=== PATIENT | female | born 1955 | race Caucasian/White ===

== ENCOUNTER 2017-06-30 02:22 | Inpatient (IN) | payer OTHER ==
[~2017-06-30] VITALS: Ht 162.6 cm; Wt 96.6 kg
[~2017-06-30 02:22] MED LIST: AMLODIPINE-BEN1 EAC2 PO; VITAMIN D2000 UNIT PO
--- NOTE | 2017-06-30 09:39 | RADIOLOGY REPORT ---
EXAMINATION: XR LUMBAR SPINE CLINICAL INFORMATION: L3-L4, L4-L5 TLIF COMPARISON: Lumbar spine radiograph radiograph 12/10/2016 TECHNIQUE: Lateral views of the lumbar spine were obtained at 8:26 AM and 9:08 AM FINDINGS: Lateral views demonstrate normal vertebral body height and alignment. Multilevel facet arthropathy noted in the lower lumbar spine. The lumbar radiograph from 8:26 AM demonstrates a needle in the subcutaneous tissues of the lower back with the tip at the level of the L3 spinous process. Subsequent radiograph from 9:08 AM demonstrates surgical hardware in the subcutaneous tissues of the lower lumbar spine extending from the levels of L3-L5. Linear radiopaque material is noted. There is also evidence of probable posterior decompression. IMPRESSION: Intraoperative lateral lumbar radiographs as described.
--- NOTE | 2017-06-30 12:52 | Operative Report ---
Operative/Inv Procedure Report Surgery Date: 06/30/17 Name of Procedure: L 3/4 4/;5 tlif, L3/4/5 pars osteotomies, use of 4web intervertebral biomechanical device, use of synthese pedicle screws, L3/4/5 posterior fusion, R L3/4/5 transfacet decompression, L3/4/5 laminectomy, use of auto graft, use of allograft, stealth navigation, bone mnarrow aspirate from R ilica crest Pre-Operative Diagnosis: l3/4/5 spondyliolisthesis Post-Operative Diagnosis: same Estimated Blood Loss: 1000mL Surgeon/Filter Plant Operator: Shena Fofana MD Anesthesia: general endotracheal tube Operative/Procedure Note Note: After successful administration of general endotracheal anesthesia all lines tubes and monitors were placed by anesthesia team the patient was prone on the Sloan table pressure points padded plantar skin incision over the spinous processes of L3 4 and 5 patient was prepped and a spinal needle was inserted at the spinous process of L5 x-rays used to confirm level. Was then reprepped and draped in consistent likely with epinephrine was infiltrated subcutaneous tissues were 10 was used to incise the skin was deepened to thoracolumbar fascia which was divided and a subperiosteal dissection was carried out exposing the spinous process lamina 3 through 5. We dissected out laterally preserving the facet capsules around the joint as well as the transverse processes of L3 through 5. We confirmed level using x-ray after that the joint capsules were denuded from the 34, 45 joint spaces, the 2/3 joint capsule was preserved. After identified all the bony anatomy soft tissue retractors were inserted we removed the spinous process and lamina the Gabrielle bone cutter Graham rontonour bone was saved for morselized autograft, we then make cuts bilaterally in the pars at L3 and 4 removing the descending facets of L 3 and 4 sustaining for morselized autograft made further cuts in the superior facet complex the superior articular facets at L5 L4. We then removed the ligament of flavum over the thecal sac ensured that there was no further central stenosis. We then identified the disc space at L 3445 disc space, we enterd the disc spaces and performed a total discectomy uning pituitary, domo and rasps. We placed a 10mm 4 web cage at L3/4 and a 12mm 4 web cage at L4/5. The spinous process clamp spinous process of S1 brought the O arm in on the MEPS Real-Time workstation to plan the screw to points and trajectories we used the navigated high-speed drill to drill safety teacher of pars reticularis transverse process facet complexes at L3 45 these were deepened with the navigated lanky probe and tapped with a tap, we then placed 6.5 x50 at L3 and L4 bilaterally, and a 6.5x 45 at L 5. All screws stimulated above threshold but only confirmatory spin all hardware position. Transverse processes were decorticated and packed morselized autograft soaked with bone marrow aspirate taken from the right iliac crest. We then placed to precontoured rods secur L34 and 5 L3 65 by 50s at L4 E65 by 50s at L5 and 6 [address] with set screws and tightened with torque ross carrier driver. The was a copious irrigated bacitracin irrigation vancomycin powder was inserted, the neurological elements inspected there was no evidence of ongoing compression or CSF leak. Th through a separate stab incision a SHANON drain was placed. The wound was then closed in layers using 0 Vicryls for the fascia muscles 2-0 Vicryl for deep dermis and skin was closed mini. A dry sterile dressing applied and the patient taken to recovery in stable condition.
--- NOTE | 2017-06-30 12:52 | Operative Report ---
Operative/Inv Procedure Report Surgery Date: 06/30/17 Name of Procedure: 1. L3, L4 pars osteotomies 2. L3, L4 total laminectomy, facetectomies 3. L3 4, L4 5 far lateral discectomies 4. L3 4, L4 5 transforaminal lumbar interbody fusion with Synthes 4 with interbody cages, autograft 5. L3, L4, L5 segmental posterior lateral arthrodesis with Synthes expedient pedicle screws and rods, autograft, iliac crest bone marrow aspirate, Cronos allograft 6. O arm neuro navigation 7. Right iliac crest bone marrow aspirate Pre-Operative Diagnosis: L3 4, L4 5 spondylolisthesis, stenosis Post-Operative Diagnosis: Same Estimated Blood Loss: 1L Surgeon/Offal Worker: Brigido DAWSON,Terry Woodard M.D. Anesthesia: general endotracheal tube Monitors: Neurophysiologic monitoring IV Fluids: 1.2 L crystalloid, 450 mL Cell Saver Implants: Synthes Urine Output: 210 mL via Barron Drains: Medium Hemovac Specimens: L3 4, L4 5 disc material Complications: None Condition: Stable Operative Indication: Patient is a 61-year-old woman with intractable back and bilateral lower extremity claudication despite maximal conservative treatment. Her imaging study identifies an unstable L4 5 grade 1 spondylolisthesis, advanced facet arthrosis, left paracentral L4 5 disc herniation with a moderately severe central and severe lateral recess stenosis at this level. L3 4, combination of broad disc bulge and hypertrophic facet and ligamentous changes results in a severe degree of canal stenosis. In light of her failure to respond to nonoperative treatment, she now presents for surgical decompression and instrument and stabilization. Operative/Procedure Note Note: Patient was taken to the operating room. After appropriate patient identification and surgical timeout, the patient underwent the smooth induction of general endotracheal anesthesia without incident. Once endotracheal tube was secured in position, Barron catheter was sterilely inserted. DVT prophylaxis utilized throughout the case. Neurophysiologic monitoring leads placed and baseline recordings obtained. Patient then turned to the prone position on the Sloan table taking care to ensure that all pressure points were well-padded. Lumbar region low back widely prepped and draped in the usual sterile fashion using povidone iodine solution. Midline incision was marked and infiltrated with local anesthetic. Small gauge spinal needle was placed superficially and a localizing lateral lumbar x-rays obtained and confirmed to be at the L3/4 level. A skin incision was then made from approximately L2 to to L5 with a 10 blade knife and a self-retaining retractor was placed. Dissection was carried down through the subcutaneous tissue with the Bovie to the lumbodorsal fascia. Fascia was incised in midline and a subperiosteal dissection of the lumbar paravertebral muscles performed bilaterally exposing spinous processes, lamina, and facets bilaterally. Muscle was reflected under self-retaining retractors. A [place]icoon was placed at the presumed L3 pars and intraoperative lateral x-ray was obtained to confirm the correct levels. With the levels verified, we then proceeded to expose the transverse processes of L3, L4, and L5 bilaterally. They were decorticated with a high-speed drill to prepare them for arthrodesis. Lateral gutters were packed off. We focused our attention to the decompression. Total laminectomies were performed from L3 to L5 using a combination of the bone scalpel, Leksell rongeur, and Kerrison rongeurs. Pars osteotomies were performed at L3, and L4 using the bone scalpel and total facetectomies were completed skeletonizing the pedicles from L3 to L5 bilaterally. All bone was saved and passed off to the back table. Exiting and traversing roots were thoroughly decompressed and identified. Once the facetectomies were completed, we proceeded with placement of the pedicle screw instrumentation. The O arm reference arc was placed on the S1 spinous process and the O arm was brought into play. Reference AP and lateral x -rays were obtained followed by a spin. Axial, coronal, and sagittal reconstructions were then acquired and confirmed. Using O arm navigation, we then proceeded to placement of the Synthes Expedia pedicle screw instrumentation. The entry points were selected with navigation, marked with the drill, pedicles were traversed with a gearshift, sounded with a ball-tipped probe, tapped, and then screws placed. At L3 and L4, 6.0 x 50 m screw was placed bilaterally. At L4, 6.0 x 45 mm screw placed on the left and a 6.0 x 50 mm screw on the right. At L5, 6.5 x 45 mm screws were placed bilaterally. Once all screws were in position, they were stimulated with thresholds greater than 30 mA. With the screws in position, we then proceeded with interbody arthrodesis. 20 cc of iliac crest bone marrow aspirate was taken from the right iliac crest with a Jamshidi needle and added to the autograft. Starting at L3/4, The dural sac on the left was gently mobilized to the midline. The underlying annulus was coagulated and incised with an 11 blade knife. Discectomy was performed with straight and angled curettes, disc space domo and rasps until all of the cartilaginous endplate was removed. Morcellated autograft was packed into the anterior aspect of the disc space. After appropriate trials, an 10 x 26 mm 4 web cage was selected, packed with morcellated autograft and bone marrow aspirate and then tamped into the disc space under direct observation and countersunk by approximately 2-3 mm. Visual inspection noted the position of the cage to be excellent. With the L3/4 cage in position, we proceeded with the interbody arthrodesis at L4/5 in an analogous fashion. The disc space was approached via the left side. At L4/5, a 12 x 26 mm 4 web cage was placed with morcellated autograft and iliac crest bone marrow packed in the anterior disc. The cage were gently tamped into the interspace and countersunk. Neural elements were protected and neurophysiologic monitoring remained stable throughout the procedure. Once all the hardware was in position, the O arm was brought back into play. A second spin was obtained and confirmed excellent position of all of the instrumentation the decompression of the central canal and neural foramen was excellent. Lordotic titanium rods were then top loaded into the screws and locking caps were placed. Morcellated autograft was packed over the decorticated transverse processes from L3 to L5 bilaterally mixed with the iliac crest bone marrow aspirate. Screws were then finally tightened with an antitorque device. The wound was copiously irrigated with sterile normal saline and we began wound closure. 1 g of IV vancomycin powder was placed into the wound over the cut muscle and soft tissue surfaces. A medium Hemovac drain was placed into the wound and secured to the skin with a 3-0 nylon suture. The wound was closed in layers with interrupted 0 Vicryl suture in the deep muscle and lumbodorsal fascia. Subcutaneous tissue was closed with interrupted 203 0 Vicryl suture and the skin was closed with mini. Wounds clean and dried. Bacitracin and a sterile occlusive dressing was placed. Patient was then returned to the supine position, awakened, extubated, and taken to PACU in stable condition. She was noted to be moving all 4 extremities at the completion of the case. All sponge, needle, and instrument counts were correct at the completion of the procedure 3. Neurophysiologic monitoring was stable throughout the case. Findings: Left L4 5 disc herniation, bilateral facet arthrosis, high-grade spinal stenosis , L4 5 instability Discharge Disposition: PACU
--- NOTE | 2017-06-30 13:42 | RADIOLOGY REPORT ---
EXAMINATION: INTRAOPERATIVE FLUOROSCOPY DURING L3-L4, L4-L5 TLIF CLINICAL INDICATION: Intraoperative fluoroscopy. COMPARISON: None. TECHNIQUE: The procedure was performed by Dr. Fofana in the operating room. FLUOROSCOPY TIME: 7 minutes 69 seconds. Number of images: 384 FINDINGS: Intraoperative fluoroscopy/cone beam CT was utilized without the presence of a radiologist during lumbar spine surgery. Images demonstrate placement of posterior decompression and transpedicular screws with intradiscal fusion device. IMPRESSION: Intraoperative fluoroscopy was utilized by Dr. Fofana during L3-L4, L4-L5 TLIF. Please refer to the operative report for a detailed description of the procedure and the real-time findings made and acted upon by the surgeon.
[2017-06-30 15:30] VITALS: BP 104/54
--- NOTE | 2017-06-30 16:15 | PN- Neurosurgical ---
Subjective Subjective: POC: Patient feeling well postoperative, she has mild complaints of pain that is controlled with pain medication. She denies any neurologic symptoms down the extremities. There is no fever or flulike illness. No chest pain or shortness of breath. Objective Vital Signs and I&Os Vital signs stable, afebrile Physical Exam: Well-developed well-nourished no apparent distress. HEENT: Atraumatic, extraocular motion intact Neck: Supple, no lymphadenopathy Respiratory: No respiratory distress Back: Dressing clean dry and intact, Hemovac drain in place, small amount of bloody drainage Extremities: No edema, no calf pain neurovascularly intact distally, sensation and motor grossly intact, Neuro: Alert and oriented x3 Psych: Mood affect normal, normal memory normal judgment. Skin: Warm and dry, no rash on exposed skin Assessment/Plan Assessment/Plan Postop day #0 status post L3 4, L4 5 transforaminal lumbar interbody fusion Perioperative antibiotics until the drain is out. Pain medication as needed, Dilaudid GOAT DRIVER overnight. Physical therapy in the morning, out of bed IV fluids Regular diet Follow a.m. CBC Heparin subcutaneous for DVT prophylaxis starting tomorrow morning ALPS for DVT prophylaxis Regular home meds Continue Hemovac drain to self suction Barron catheter, DC and a.m. Dressing change postop day 2 Core Measures Venous Thromboembolism VTE Risk Factors Age>40 No Mechanical VTE Prophylaxis d/t N/A MechProphylax Ordered No VTE Pharm Prophylaxis d/t NA PharmProphylax ordered
[2017-06-30 17:30] VITALS: BP 108/58
[2017-06-30 19:30] VITALS: BP 108/64
[2017-06-30 21:30] VITALS: BP 108/60
[2017-06-30 23:30] VITALS: BP 110/62
[2017-07-01] VITALS (9 sets, daily range): BP systolic 110–138; BP diastolic 62–78
--- NOTE | 2017-07-01 07:00 | PN- Neurosurgical ---
Subjective Subjective: Pt doing well. Had nausea since OR but resolved this am. Pain well controlled. Objective Vital Signs and I&Os Vital Signs Date Time Temp Pulse Resp B/P B/P Pulse O2 O2 Flow FiO2 Mean Ox Delivery Rate 07/01 0600 98.3 80 18 116/66 96 07/01 0404 98.1 69 18 110/62 98 07/01 0330 98.1 69 18 110/62 07/01 0130 98.0 69 18 112/62 07/01 0100 98.0 69 18 112/62 95 06/30 2330 98.1 72 16 110/62 06/30 2330 98.1 72 16 110/62 95 Room Air 06/30 2130 98.1 70 14 108/60 06/30 2130 98.1 70 14 10860 96 Room Air 06/30 1930 98.0 61 14 108/64 06/30 1930 98.0 61 14 108/64 95 Room Air 06/30 1730 97.5 64 18 108/58 06/30 1730 97.5 64 18 108/58 94 Room Air 06/30 1630 Room Air 06/30 1530 97.9 63 18 104/54 06/30 1530 97.9 64 18 104/54 94 Room Air Intake & Output 07/01 0800 07/01 0000 06/30 1600 06/30 0800 06/30 0000 06/29 1600 Intake Total Output Total 790 Balance -790 Output, 290 Drainage Output, Urine 500 Patient 96.615 kg Weight Weight Standing Scale Measurement Method Physical Exam: AF, VSS awake and alert, conversive and appropriate incision is c,d,i flat HV 290cc since OR serosanguinous neuro exam of bilat LE is normal with full motor and sensory, no edema, no calf tenderness using IS hudson, GLASS UNLOADING EQUIPMENT TENDER in place Current Medications: Current Medications Sig/Caro Start time Last Medication Dose Route Stop Time Status Admin Acetaminophen 650 MG Q4P PRN 06/30 1445 AC PO Amlodipine Besylate 5 MG DAILY 07/01 1000 AC PO Bisacodyl 10 MG DAILY NEEDED PRN 06/30 1445 AC CO Cefazolin Sodium 2 GM IQ8 06/30 1600 AC 07/01 N/A 1 UNIT IV 07/03 08 0009 Cefazolin Sodium 2,000 MG ONCE 06/30 0000 DC IV 06/30 2359 Diazepam 5 MG Q8P PRN 06/30 1500 AC PO Docusate Sodium 100 MG TID 06/30 1600 AC 06/30 PO 2143 Heparin Sodium 5,000 UNIT Q8 07/01 0600 AC 07/01 (Porcine) SC 0606 Hydromorphone HCl 50 MG Q24H PRN 06/30 1315 AC Sodium Chloride 45 ML IV Ketorolac 15 MG Q6P PRN 06/30 1445 AC Tromethamine IV Lisinopril 10 MG DAILY 07/01 1000 AC PO Morphine Sulfate 4 MG .STK-MED ONE 06/30 1335 DC IM 06/30 1336 Ondansetron HCl 4 MG Q6P PRN 06/30 1445 AC 06/30 IV 1554 Oxycodone/ 2 TAB Q4P PRN 06/30 1445 AC Acetaminophen PO Sodium Chloride 1,000 ML .[id number] 06/30 1445 AC 06/30 IV 07/01 1544 2250 Trimethobenzamide HCl 200 MG Q6P PRN 06/30 1445 AC 06/30 IM 1858 Zolpidem Tartrate 2.5 MG AT BEDTIME NEED.. 06/30 1445 AC PO Assessment/Plan Assessment/Plan Pt POD1 s/p L3/4, L4/5 TLIF and doing well. Neurologically intact and pain well controlled. Plan: -OOB with brace -cont HV untiil less than 50cc per shift, abx until out - PLEASE have nursing document output per shift -PT for safety check, likely to go home with VNA -ADAT -dc GLASS UNLOADING EQUIPMENT TENDER - toradol q8hr atc and pain med prn -use IS 10x/hr WA -cont DVT prophylaxis -check cbc this am -dc hudson catheter, ISC prn Core Measures Venous Thromboembolism VTE Risk Factors Age>40 No Mechanical VTE Prophylaxis d/t N/A MechProphylax Ordered No VTE Pharm Prophylaxis d/t NA PharmProphylax ordered
[2017-07-01 08:24] LABS: ABSOLUTE BASOPHIL COUNT 0 /CUMM (0.0-0.2); ABSOLUTE EOSINOPHIL COUNT 0 /CUMM (0.0-0.7); ABSOLUTE GRANULOCYTE CT 9.8 /CUMM (1.4-6.5); ABSOLUTE LYMPH COUNT 2.2 /CUMM (1.2-3.4); ABSOLUTE MONOCYTE COUNT 1.1 /CUMM (0.10-0.60); BASOPHIL % 0.3 % (0.0-2.0); EOSINOPHIL % 0.1 % (0-5); GRANULOCYTE % 74.7 % (42.2-75.2); HEMATOCRIT 32.9 % (37-47); MEAN CORPUSCULAR HGB 30.4 PG (27.0-31.0); MEAN CORPUSCULAR HGB CONC 33.3 G/DL (33.0-37.0); MEAN CORPUSCULAR VOLUME 91.1 FL (81.0-99.0); MEAN PLATELET VOLUME 8.4 FL (7.4-10.4); PLATELET COUNT 265 /CUMM (130-400); RBC DISTRIBUTION WIDTH 14.9 % (11.5-14.5); RED BLOOD CELL CT 3.61 /CUMM (4.20-5.40); WHITE BLOOD CELL COUNT 13.1 /CUMM (4.8-10.8)
[2017-07-02 07:03] VITALS: BP 132/70
--- NOTE | 2017-07-02 07:36 | PN- Neurosurgical ---
Subjective Subjective: Pt doing well. Pain well controlled yest. Walking on unit, did stairs without difficulty. Objective Vital Signs and I&Os Vital Signs Date Time Temp Pulse Resp B/P B/P Pulse O2 O2 Flow FiO2 Mean Ox Delivery Rate 07/02 0703 98.3 87 18 132/70 93 07/01 2048 98.3 82 95 138/78 Room Air 07/01 1458 98.1 92 18 120/72 95 Room Air 07/01 1200 98.5 90 18 128/62 97 Room Air 07/01 0925 75 110/64 07/01 0925 75 110/64 Intake & Output 07/02 0800 07/02 0000 07/01 1600 07/01 0800 07/01 0000 06/30 1600 Intake Total 866 747 7522 760 Output Total 660 700 290 335 790 Balance -320 -100 950 425 -790 Intake, IV 100 120 640 640 Intake, Oral 240 480 600 120 Number 0 Bowel Movements Output, 60 100 90 10 290 Drainage Output, Urine 600 600 200 325 500 Patient 96.615 kg Weight Weight Standing Scale Measurement Method Physical Exam: AF, VSS neuro exam is normal bilat LE incision c,d,i HV with 60cc last shift ambulating well, chace full diet voiding on own using IS to 2.5L Current Medications: Current Medications Sig/Caro Start time Last Medication Dose Route Stop Time Status Admin Acetaminophen 650 MG Q4P PRN 06/30 1445 AC PO Amlodipine Besylate 5 MG DAILY 07/01 1000 AC PO Bisacodyl 10 MG DAILY NEEDED PRN 06/30 1445 AC MA Cefazolin Sodium 2 GM IQ8 06/30 1600 07/02 N/A 1 UNIT IV 07/03 0829 0004 Diazepam 5 MG Q8P PRN 06/30 1500 AC PO Docusate Sodium 100 MG TID 06/30 1600 AC 07/01 PO 2053 Heparin Sodium 5,000 UNIT Q8 07/01 0600 AC 07/02 (Porcine) SC 0555 Hydrocodone Bitart/ 1 TAB Q4P PRN 07/01 0730 AC Acetaminophen PO Hydrocodone Bitart/ 2 TAB Q4-6 PRN PRN 07/01 0730 AC Acetaminophen PO Ketorolac 30 MG Q8 07/01 1400 AC 07/02 Tromethamine IV 0555 Ketorolac 30 MG Q6 07/01 0715 DC 07/01 Tromethamine IV 0748 Lisinopril 10 MG DAILY 07/01 1000 AC PO Ondansetron HCl 4 MG Q6P PRN 06/30 1445 AC 06/30 IV 1554 Patient Medication 1 ED ONE ONE 07/01 1600 DC 07/01 [facility] ED 07/01 1601 1614 Sodium Chloride 1,000 ML .[id number] 06/30 1445 DC 06/30 IV 07/01 1544 2250 Trimethobenzamide HCl 200 MG Q6P PRN 06/30 1445 AC 06/30 IM 1858 Zolpidem Tartrate 2.5 MG AT BEDTIME NEED.. 06/30 1445 AC PO Results Last 48 Hours of Labs: Laboratory Tests 07/01 0615 Hematology CBC w Diff NO MAN DIFF REQ WBC (4.8 - 10.8 /CUMM) 13.1 H RBC (4.20 - 5.40 /CUMM) 3.61 L Hgb (12.0 - 16.0 G/DL) 11.0 L Hct (37 - 47 %) 32.9 L MCV (81.0 - 99.0 FL) 91.1 MCH (27.0 - 31.0 PG) 30.4 MCHC (33.0 - 37.0 G/DL) 33.3 RDW (11.5 - 14.5 %) 14.9 H Plt Count (130 - 400 /CUMM) 265 MPV (7.4 - 10.4 FL) 8.4 Gran % (42.2 - 75.2 %) 74.7 Lymphocytes % (20.5 - 51.1 %) 16.4 L Monocytes % (1.7 - 9.3 %) 8.5 Eosinophils % (0 - 5 %) 0.1 Basophils % (0.0 - 2.0 %) 0.3 Absolute Granulocytes (1.4 - 6.5 /CUMM) 9.8 H Absolute Lymphocytes (1.2 - 3.4 /CUMM) 2.2 Absolute Monocytes (0.10 - 0.60 /CUMM) 1.1 H Absolute Eosinophils (0.0 - 0.7 /CUMM) 0 Absolute Basophils (0.0 - 0.2 /CUMM) 0 Assessment/Plan Assessment/Plan A/P: Pt POD2 s/p L3/4, L4/5 TLIF and doing very well. Neurologically intact. Plan: -dc HV, abx -home today with toradol 15 po q8 prn x3days, vicoden and robaxin prn -fu with me 2 weeks for mini -VNA for dressing changes -dc instruction discussed with pt in detail - no driving, cover incision occlusively for showers, no submerging incision, no life over 5lbs, no bending , twisting etc -brace when OOB Core Measures Venous Thromboembolism VTE Risk Factors Age>40 No Mechanical VTE Prophylaxis d/t N/A MechProphylax Ordered No VTE Pharm Prophylaxis d/t NA PharmProphylax ordered Attending MD Review Statement Attending Statement Attending MD Statement: examined this patient, discuss w/resident/PA/NUTRITION ASSISTANT, discussed w/nursing
--- NOTE | 2017-07-02 07:43 | Surg Short-stay <48hrs Dis Sum ---
Visit Information Visit Dates Admission Date: 06/30/17 Discharge Date: 07/02/17 Surgical Short Stay DC Summary Admission Diagnosis: L3-4, L4-5 spondylolisthesis, stenosis Final Diagnosis: same as above, s/p Surgery Date: 06/30/17 Name of Procedure: 1. L3, L4 pars osteotomies 2. L3, L4 total laminectomy, facetectomies 3. L3 4, L4 5 far lateral discectomies 4. L3 4, L4 5 transforaminal lumbar interbody fusion with Synthes 4 with interbody cages, autograft 5. L3, L4, L5 segmental posterior lateral arthrodesis with Synthes expedient pedicle screws and rods, autograft, iliac crest bone marrow aspirate, Cronos allograft 6. O arm neuro navigation 7. Right iliac crest bone marrow aspirate Procedure(s): Surgery Date: 06/30/17 Name of Procedure: 1. L3, L4 pars osteotomies 2. L3, L4 total laminectomy, facetectomies 3. L3 4, L4 5 far lateral discectomies 4. L3 4, L4 5 transforaminal lumbar interbody fusion with Synthes 4 with interbody cages, autograft 5. L3, L4, L5 segmental posterior lateral arthrodesis with Synthes expedient pedicle screws and rods, autograft, iliac crest bone marrow aspirate, Cronos allograft 6. O arm neuro navigation 7. Right iliac crest bone marrow aspirate Summary/Significant Findings: Operative Indication: Patient is a 61-year-old woman with intractable back and bilateral lower extremity claudication despite maximal conservative treatment. Her imaging study identifies an unstable L4 5 grade 1 spondylolisthesis, advanced facet arthrosis, left paracentral L4 5 disc herniation with a moderately severe central and severe lateral recess stenosis at this level. L3 4, combination of broad disc bulge and hypertrophic facet and ligamentous changes results in a severe degree of canal stenosis. In light of her failure to respond to nonoperative treatment, she now presents for surgical decompression and instrument and stabilization. Electively scheduled L3/4, L4/5 TLIF on 06/30/17 by for history of spondylolisthesis and stenosis. Assessed by PT post-operatively. Out of bed with brace. Pain controlled with toradol primarily. Drain removed on post-op day#2, and discharged to home with VNA services. Condition at Discharge: stable Discharge Disposition: home health services Discharge instructions provided to patient/family: Yes Post discharge follow-up plan: 2 week follow up with staple removal around post-op day#14 Copies to: Jose DAWSON,Jose
--- NOTE | 2017-07-02 07:50 | Patient Discharge Instructions ---
Discharge Instructions General Discharge Information You were seen/treated for: L3-4, L4-5 spondylolisthesis, stenosis You had these procedures: Surgery Date: 06/30/17 TLIF L3-4, L4-5 Watch for these problems: fever>101.3, increased pain, redness/swelling/drainage, dizziness, shortness of breath, chest pains Call Surgeon to remove: Jenkins No bath, but you may shower: Yes Other wound care: shower with occlusive dressing Diet Continue normal diet: Yes Recommended Diet: Regular Activity Full Activity/No Limits: No Activity Self Limited: Yes Pounds, do NOT lift more than: 5 Activity Limited to: Weight bear as tolerated Other activity limits: out of bed with brace, as directed Acute Coronary Syndrome Inclusion Criteria At DC or during hospital stay patient has or had the following: ACS DIAGNOSIS No Discharge Core Measures Meds if any: Prescribed or Continued at Discharge Meds if any: NOT Prescribed or Continued at Discharge Congestive Heart Failure Inclusion Criteria At DC or during hospital stay patient has or had the following: CHF DIAGNOSIS No Discharge Core Measures Meds if any: Prescribed or Continued at Discharge Meds if any: NOT Prescribed or Continued at Discharge Cerebrovascular accident Inclusion Criteria At DC or during hospital stay patient has or had the following: CVA/TIA Diagnosis No Discharge Core Measures Meds if any: Prescribed or Continued at Discharge Meds if any: NOT Prescribed or Continued at Discharge Venous thromboembolism Inclusion Criteria VTE Diagnosis No VTE Type NONE VTE Confirmed by (Test) NONE Discharge Core Measures - Per Current guidelines, there needs to be overlap - treatment for the first 5 days of Warfarin therapy. - If discharged on Warfarin prior to 5 days of - overlap therapy, the patient will need to be - assessed for post discharge needs including - *Post discharge parental anticoagulation - *Warfarin and/or parental anticoagulation education - *Follow up date to check INR post discharge At least 5 days overlap therapy as Inpatient No Meds if any: Prescribed or Continued at Discharge Note: Overlap Therapy is Warfarin and Anticoagulant Meds if any: NOT Prescribed or Continued at Discharge
[2017-07-02] MEDS ORDERED: KETOROLAC TROME10 M1 PO (08:23)
[2017-07-02] MEDS ORDERED: VICODIN 5-3001 EACH PO (08:23)
[2017-07-02] MEDS ORDERED: ROBAXIN500 M1 PO (08:23)
[2017-07-02 09:07] VITALS: BP 128/78
== END 2017-07-02 14:08 | disposition home health service (06) | DRG 455 ==
LOC: 2NB 02:22 → SDA 02:22 → ENRESERV 13:41 → ENTRNSPT 14:50 → EDTRNSPTSTS 15:08 → EDTRNSPT 15:08 → 2NB 15:10 → CMPTRNSPT 15:21 → ENPENDDIS 07-02 08:08 → ENTRNSPT 07-02 13:43 → EDTRNSPT 07-02 14:01 → EDTRNSPTSTS 07-02 14:01 → 2NB 07-02 14:08 → CMPTRNSPT 07-02 14:09
PROVIDERS: Physician Assistant Surgical
PROC: 0SG1071 Fusion of 2 or more Lumbar Vertebral Joints with Autologous Tissue Substitute, Posterior Approach, Posterior Column, Open Approach (ICD-10-PCS; principal; 2017-06-30)
PROC: 0SB20ZZ Excision of Lumbar Vertebral Disc, Open Approach (ICD-10-PCS; principal; 2017-06-30)
PROC: 8E0WXBZ Computer Assisted Procedure of Trunk Region (ICD-10-PCS; principal; 2017-06-30)
PROC: 0SG10AJ Fusion of 2 or more Lumbar Vertebral Joints with Interbody Fusion Device, Posterior Approach, Anterior Column, Open Approach (ICD-10-PCS; principal; 2017-06-30)
PROC: 4A11X4G Monitoring of Peripheral Nervous Electrical Activity, Intraoperative, External Approach (ICD-10-PCS; principal; 2017-06-30)
PROC: 07DR3ZZ Extraction of Iliac Bone Marrow, Percutaneous Approach (ICD-10-PCS; principal; 2017-06-30)
DX: M43.16 Spondylolisthesis, lumbar region (principal); E55.9 Vitamin D deficiency, unspecified; M48.061 Spinal stenosis, lumbar region without neurogenic claudication; M51.26 Other intervertebral disc displacement, lumbar region; E66.9 Obesity, unspecified; Z68.36 Body mass index [BMI] 36.0-36.9, adult; I10 Essential (primary) hypertension; I87.2 Venous insufficiency (chronic) (peripheral); E78.2 Mixed hyperlipidemia; Z87.891 Personal history of nicotine dependence
CPT/HCPCS: 2NBP; 36415; 72020; 72100; 87086; 88304; 97116-GO; 97161-GP; C9290; J0131; J0690; J1170; J1644; J1885; J2405; J3250; J3370